=== PATIENT | female | born 1990 | race Two or more races ===

== ENCOUNTER 2017-11-18 04:26 | Emergency (ER) | payer OTHER ==
[~2017-11-18] VITALS: Ht 167.6 cm; Wt 79.4 kg
== END 2017-11-18 11:03 | disposition designated cancer center or children's hospital (05) ==
LOC: ER 04:26
DX: S82.61XA Displaced fracture of lateral malleolus of right fibula, initial encounter for closed fracture (principal); W18.39XA Other fall on same level, initial encounter; Y93.89 Activity, other specified; Y92.098 Other place in other non-institutional residence as the place of occurrence of the external cause; Y99.8 Other external cause status